=== PATIENT | female | born 1940 | race Caucasian/White ===

== ENCOUNTER 2020-06-02 08:47 | Inpatient (IN) | payer MEDICARE, SELFPAY ==
[2020-06-02] VITALS (13 sets, daily range): BP systolic 127–165; BP diastolic 64–75; PULSE 65–79; RESP 16–20; TEMP 36.4–36.9; O2SAT 94–99; BMI 25.3
--- NOTE | ~2020-06-02 | CT_ITS ---
EXAMINATION: CT lumbar spine wo con DATE: 06/02/2020 10:35 INDICATION: Low back pain TECHNIQUE: Computed tomography (CT) of the lumbar spine was performed without intravenous contrast. T he dose-length product was 621.60 mGy-cm. Automated exposure control and iterative reconstruction graciela hnique were employed. COMPARISON: No prior studies for comparison. FINDINGS: There are surgical changes consistent with posterior and anterior cervical fusion at L4-5. There is a prosthetic disc device at this level. There is disc narrowing at the remainder of the lumb ar spine levels with endplate hypertrophy/sclerosis. Lung bases unremarkable. There are bilateral sac ral insufficiency fractures. There is a transverse process fracture at L5 on the left. There is scoli osis. IMPRESSION: 1. Bilateral sacral insufficiency fractures. 2: Left L5 transverse process fracture. 3: Severe lumbar spondylosis with fusion at L4-5. Reviewed, dictated and finalized at location A. BUILDER
[2020-06-02] MEDS: HYDROmorphone HCL INJ (*CRX) 1 MG/ML SYR IV PUSH ×3 (09:36→13:03)
[2020-06-02] MEDS: ORPHENADRINE CITRATE 100 MG TABLET.ER PO (09:37)
[2020-06-02] MEDS: KETOROLAC 15 MG/ML VIAL (*BKC) IV PUSH (09:37)
--- NOTE | 2020-06-02 11:57 | ED.GENADULT ---
HPI - General Adult General Chief complaint: Back Pain/Injury Stated complaint: BACK PAIN Time Seen by Provider: 06/02/20 09:10 History of Present Illness HPI narrative: Patient is 79-year-old female presents to the emergency department with chief complaint of back pain. Patient reports that she has had chronic back pain that is been managed by her primary care physician and has been taking fentanyl patches and also oxycodone. The patient states that today she was laying in bed and had so much pain that she was unable to get out of bed. Patient states that she has had no falls no trauma denies bowel or bladder dysfunction denies foot drop denies paresthesias in her lower extremities. Related Data Home Medications Medication Instructions Recorded Confirmed fentanyl 75 mcg TRANSDERMAL Q3-4D 06/02/20 06/02/20 metoprolol tartrate 25 mg PO HS 06/02/20 06/02/20 oxycodone-acetaminophen 7.5 tablet PO Q6H 06/02/20 06/02/20 Allergies Allergy/AdvReac Type Severity Reaction Status Date / Time Sulfa (Sulfonamide Allergy Intermediate HIVES Verified 06/02/20 08:49 Antibiotics) Review of Systems Review of Systems: Narrative: A 10 system review of systems was completed on the patient and is negative except for what is stated in the HPI. Nursing and ancillary documentation was reviewed. REPLACED BY [facility] Past Medical History Medical History (Updated 06/02/20 @ 17:58 by Betty Prado PA-C) Chronic back pain Chronically on opiate therapy History of peptic ulcer Hypertension Kidney stones Nicotine dependence Osteoporosis Spinal stenosis Surgical History Surgical History (Updated 06/02/20 @ 17:57 by Betty Prado PA-C) History of appendectomy History of bilateral cataract extraction History of cholecystectomy History of exploratory laparotomy Reportedly for ectopic . History of lumbar surgery X2 History of stress incontinence procedure using tension free vaginal tape Family History Family History Grandparent Back pain Social History Social History (Updated 06/02/20 @ 17:58 by Betty Prado PA-C) Social History: Surrogate decision maker: Zachery Alford, spouse. Code status: Full code. Smoking packs per day: 0.5 Smoking cigarettes per day: 10.0 Years smoked: 25 Smoking pack-years: 12.50 Smoking status: Current every day smoker Tobacco type: cigarettes Alcohol intake: never Substance use: never Additional living arrangements comments: Lives in [place] with her . Gender identity (if verbalized by the patient): Female Sexual Orientation (if Verbalized by the Patient): Straight or Heterosexual Spiritual care concerns: No Comments Past medical history significant for chronic back pain Social history patient denies a smoking or illicit drug use Exam Narrative: Exam Narrative: GENERAL: Well-appearing, well-nourished, and in no acute distress. HEAD: Normocephalic, atraumatic. EYES: PERRLA and EOMI. ENT: Nares clear, no rhinorrhea or epistaxis. Mucous membranes moist. NECK: Supple. CHEST: Clear to auscultation. No respiratory distress. HEART: Regular rate and rhythm. No murmur heard. Normal peripheral pulses. ABDOMEN: Soft, nontender, nondistended, normal active bowel sounds. EXTREMITIES: Normal range of motion. No edema. SKIN: Warm, dry, no rash. NEURO: No focal deficits. Alert and oriented x3. PSYCH: Normal mood and affect. Course Course Emergency Course: CT scan of the lumbar spine showed evidence of a transverse process fracture and also sacral insufficiency fractures. Attempts were made to control the patient's pain in the emergency department the patient received additional pain medications but continues to have severe pain since the patient has continued to have pain the case was discussed with the hospitalist and the patient will be admitted to the hospitalist service Vital Sig
--- NOTE | 2020-06-02 12:41 | PC.NURSE ---
UPON TRYING TO SIT PT UP SHE STARTED CRYING. STATES SHE CAN NOT TOLERATE THE PAIN. DR BULL NOTIFIED. VRBO FOR DILAUDID 1 MG IVP. PT NOTIFIED OF PLAN OF CARE. NO FURTHER QUESTIONS
[2020-06-02 13:47] LABS: Basophils Percent Auto 0.3 % (0.2-1.2); Eosinophils Absolute Auto 0.1 K/mm3 (0-0.3); Eosinophils Percent Auto 0.6 % (0-4.4); Hematocrit 37.6 % (37.0-47.0); Hemoglobin 12.4 g/dL (12.0-15.0); Immature Granulocyte Absolute 0.07 K/mm3 (0.00-0.031); Immature Granulocyte Percent A 0.7 % (0-0.5); Lymphocytes Percent Auto 35.6 % (18.3-44.2); Mean Corpuscular Hemoglobin 29.8 pg (26-34); Mean Corpuscular Volume 90.4 fl (80-100); Mean Platelet Volume 9.5 fl (7.4-10.4); Monocytes Absolute Auto 0.9 K/mm3 (0.1-0.6); Neutrophils Absolute Auto 5.6 K/mm3 (1.3-6.7); Neutrophils Percent Auto 53.8 % (45.5-73.1); Platelet Count Result 249 k/mm3 (150-375); Red Blood Count 4.16 M/mm3 (4.2-5.4); Red Cell Distribution Width 12.8 % (11.5-14.5); White Blood Count 10.4 K/mm3 (4.5-10.0)
[2020-06-02 14:03] LABS: Add Urine Microscopic? YES; Appearance Urine Clear (Clear); Bilirubin Urine Negative (Negative); Blood Urine 1+ (Negative); Color Urine Yellow (Yellow); Glucose Urine UA Negative (Negative); Ketones Urine Negative (Negative); Leukocyte Esterase Ur Negative LEU/UL (Negative); Mucus Urine Rare /lpf; Nitrate Urine Negative (Negative); Protein Urine Negative (Negative); RBC Urine 0-2 /hpf (0-2); Specific Grav Ur 1.012 (1.001-1.035); Squamous Epithelial Cell Urine Rare /hpf (Few); WBC Urine 0-3 /hpf
[2020-06-02 14:03] LABS: Alanine Aminotransferase 14 U/L (4-35); Albumin Level 3.5 g/dL (3.5-5.1); Alkaline Phosphatase 105 U/L (38-126); Anion Gap 3 mmol/L (8-16); Aspartate Amino Transferase 24 U/L (14-36); Bilirubin,Total 0.8 mg/dL (0.2-1.3); Blood Urea Nitrogen 16 mg/dL (7-17); Calcium 8.8 mg/dL (8.4-10.2); Carbon Dioxide 35 mmol/L (22-30); Chloride 99 mmol/L (98-107); Estimated CRCL calculation 59 ml/min; Estimated Glomerular Filt Rate > 60; Glucose 93 mg/dL (65-105); Potassium 3.7 mmol/L (3.4-5.0); Sodium 137 mmol/L (137-145)
--- NOTE | 2020-06-02 15:54 | PC.NURSE ---
This patient, Theresa Alford, was admitted to 3 Med Surg Room 320-01. Patient/family oriented to hospital policies and general routines including ID bracelet, bed and alarms, visiting hours, pain management, procedures, bathroom and other care routines, personal items, smoking policy, room service/diet, and visiting hours. Information on how to activate the Rapid Response Team has been discussed. Patient/Family are encouraged to report perceived risks to care and to ask questions if they do not understand what they are told or what they should do.
--- NOTE | 2020-06-02 18:00 | PM.IMHP ---
H&P: HPI History of Present Illness Date/Time: 06/02/20 18:00 Chief Complaint: Acute on chronic back pain. Narrative: This is a 79-year-old female smoker with chronic back on long-term opiate therapy who presented to the emergency department earlier today via EMS from home with complaints of acute on chronic back pain. She has had increasing pain from her baseline for about the last 6 weeks, much worse in the last 1 week. This morning she was not able to get up from bed due to significant pain, which she describes as a ?hot poker? in the low lumbar region, radiating somewhat down the right leg. She denies recent injuries and has not started any new exercise programs. No saddle anesthesia, focal weakness, lower extremity paresthesias, bowel, or bladder incontinence. She has not had fever, chills, or sweats. No issues with constipation. Review of Systems Review of Systems: Narrative: Twelve systems were reviewed with pertinent positives and negatives as per HPI. Except as documented, all other systems were reviewed and are negative. [facility] Past Medical History Medical History (Updated 06/02/20 @ 17:58 by Betty Prado PA-C) Chronic back pain Chronically on opiate therapy History of peptic ulcer Hypertension Kidney stones Nicotine dependence Osteoporosis Spinal stenosis Surgical History Surgical History (Updated 06/02/20 @ 17:57 by Betty Prado PA-C) History of appendectomy History of bilateral cataract extraction History of cholecystectomy History of exploratory laparotomy Reportedly for ectopic . History of lumbar surgery X2 History of stress incontinence procedure using tension free vaginal tape Family History Family History Grandparent Back pain Social History Social History (Updated 06/02/20 @ 17:58 by Betty Prado PA-C) Social History: Surrogate decision maker: Zachery Alford, spouse. Code status: Full code. Smoking packs per day: 0.5 Smoking cigarettes per day: 10.0 Years smoked: 25 Smoking pack-years: 12.50 Smoking status: Current every day smoker Tobacco type: cigarettes Alcohol intake: never Substance use: never Additional living arrangements comments: Lives in [place] with her . Gender identity (if verbalized by the patient): Female Sexual Orientation (if Verbalized by the Patient): Straight or Heterosexual Spiritual care concerns: No Meds Home Medications and Allergies Home Medications Medication Instructions Recorded Confirmed Type fentanyl 75 mcg TRANSDERMAL Q3-4D 06/02/20 06/02/20 History metoprolol tartrate 25 mg PO HS 06/02/20 06/02/20 History oxycodone-acetaminophen 7.5 tablet PO Q6H 06/02/20 06/02/20 History Allergies Allergy/AdvReac Type Severity Reaction Status Date / Time Sulfa (Sulfonamide Allergy Intermediate HIVES Verified 06/02/20 08:49 Antibiotics) Vital Signs Vital Signs - 24 hr 06/02/20 08:45 06/02/20 09:42 06/02/20 11:19 Temperature 97.8 F Pulse Rate 79 69 68 Respiratory Rate 20 20 20 Blood Pressure 162/69 H 165/69 H 127/68 Pulse Oximetry 99 98 97 06/02/20 13:06 06/02/20 14:32 06/02/20 15:19 Temperature Pulse Rate 70 65 66 Respiratory Rate 20 20 20 Blood Pressure 154/64 H 138/69 138/69 Pulse Oximetry 97 99 99 06/02/20 16:11 Temperature 98.4 F Pulse Rate 70 Respiratory Rate 18 Blood Pressure 153/75 H Pulse Oximetry 99 Exam Narrative: Exam Narrative: General: Well-developed elderly female lying on her left side in bed in no acute distress. Weight: 69.8 kg. BMI: 25.6. HEENT: PERRL, EOMI. Sclerae anicteric. Oral mucosa moist. Oropharynx clear. Neck: Supple. Respiratory: Lungs are clear to auscultation bilaterally. Cardiovascular: Regular rate and rhythm with S1-S2. Soft murmur at upper sternal border. Gastrointestinal: Abdomen is soft, nontender, and nondistended with positive bowel s
[2020-06-02] MEDS: HYDROmorphone HCL INJ (*CRX) 1 MG/ML SYR 0.5 MG IV PUSH ×2 (18:06→23:00)
[2020-06-02] MEDS: METOPROLOL TARTRATE 25 MG TABLET PO (20:14)
[2020-06-03] VITALS (7 sets, daily range): BP systolic 116–128; BP diastolic 49–69; PULSE 61–85; RESP 16–20; TEMP 36.7–36.8; O2SAT 94–97; BMI 10.0
[2020-06-03] MEDS: HYDROmorphone HCL INJ (*CRX) 1 MG/ML SYR 0.5 MG IV PUSH ×4 (03:03→21:49)
--- NOTE | 2020-06-03 09:55 | PC.NURSE ---
All charting and medications done from 480-750 on this patient was done by Anabella Rodriguez RN but documented under the name of Clay Dalton RN by mistake.
--- NOTE | 2020-06-03 13:36 | PM.IMPN ---
Progress Note: A&P Assessment and Plan (1) Bilateral sacral insufficiency fracture: Qualifiers: Encounter type: initial encounter Qualified Code(s): M84.48XA - Pathological fracture, other site, initial encounter for fracture Code(s): M84.48XA - Pathological fracture, other site, initial encounter for fracture Status: Acute Assessment and Plan: Likely the reason why the patient is having so much pain -no recent fall, trauma or recent situation where she can remember causing this fracture -she takes 75 mcg of fentanyl and 7.5 mg of oxycodone routinely at home -will try this regimen and see if she can tolerate it. We will also add a lot of for breakthrough pain -if she continues to have severe pain with this, may need to increase the fentanyl patch -she has not had a bone scan in quite some time and plans to follow-up with her primary care physician to get this once she is healed -she is asking about a brace and or exercises. She is considering SNF but does not want to do that if she can avoid it -although we do not have ortho spine here, I am going to see if the orthopedist will see her to provide any extra recommendations to help her out. (2) Lumbar transverse process fracture: Qualifiers: Encounter type: initial encounter Fracture type: closed Qualified Code(s): S32.009A - Unspecified fracture of unspecified lumbar vertebra, initial encounter for closed fracture Code(s): S32.009A - Unspecified fracture of unspecified lumbar vertebra, initial encounter for closed fracture Status: Acute Assessment and Plan: As above -continue PT, OT and pain management (3) Acute exacerbation of chronic low back pain: Code(s): M54.5 - Low back pain; G89.29 - Other chronic pain Status: Acute Assessment and Plan: Due to above -adjust pain medications as stated above -may need SNF -continue with PT and OT (4) Chronically on opiate therapy: Code(s): Z79.891 - long-term (current) use of opiate analgesic Status: Acute Assessment and Plan: Patient states she is on 75 mcg of fentanyl and 7.5 mg of oxycodone pretty routinely at home. She will likely need these medications increased during this time. She had a bowel movement this morning and does not have any constipation at this time. See above. (5) Hypertension: Code(s): I10 - Essential (primary) hypertension Status: Acute Assessment and Plan: Last blood pressure 116/54 -elevated earlier in the stay likely due to pain -will monitor (6) Nicotine dependence: Code(s): F17.200 - Nicotine dependence, unspecified, uncomplicated Status: Acute Time Spent With Patient Time with patient: 25 - 35 minutes Subjective Date/time seen: 06/03/20 13:36 Interval history: Pt is a 79-year-old female here for back pain with fractures. Patient was seen today and states she is still has 10/10 back pain when lying down. She tried to work with physical therapy but could not. She was able to sit up. She has no numbness tingling or incontinence. She states that she takes 75 mcg of fentanyl at home and 7.5 mg of Oxy very routinely and she gets this from her doctor, Dr. Ball. She is trying the heating pad now to see if that helps. She had a bowel movement this morning without issue. She is eating and drinking okay. She denies chest pain, shortness of breath, fevers, chills, nausea, vomiting, abdominal pain or leg swelling. Review of Systems Review of Systems: All systems reviewed & are unremarkable except as noted in HPI and below Exam Narrative: Exam Narrative: General: Well developed well nourished patient in NAD HEENT: normocephalic Neck: supple Neuro: Alert and oriented x4. Strength 5/5 in the lower extremities with sensation intact. CV:RRR Resp:CTA Abd: Soft, non distended. No pain to palpation. Positive bowel sounds Extremities: No swelling, oneyda
[2020-06-03] MEDS: oxyCODONE HCL (*CRX) 2.5 MG TAB IR 7.5 MG PO (18:10)
[2020-06-03] MEDS: ACETAMINOPHEN 500 MG TABLET 1000 MG PO (18:11)
[2020-06-03] MEDS: METOPROLOL TARTRATE 25 MG TABLET PO (21:06)
[2020-06-04] MEDS: HYDROmorphone HCL INJ (*CRX) 1 MG/ML SYR 0.5 MG IV PUSH (03:40)
[2020-06-04 06:00] VITALS: BP 138/61; PULSE 71; RESP 20; TEMP 36.7; O2SAT 98
[2020-06-04] MEDS: oxyCODONE HCL (*CRX) 2.5 MG TAB IR 7.5 MG PO ×5 (06:21→23:04)
[2020-06-04] MEDS: fentaNYL (*CRX) 75 MCG PATCH TRANSDERM (09:31)
--- NOTE | 2020-06-04 10:31 | PM.IMPN ---
Progress Note: A&P Assessment and Plan (1) Bilateral sacral insufficiency fracture: Qualifiers: Encounter type: initial encounter Qualified Code(s): M84.48XA - Pathological fracture, other site, initial encounter for fracture Code(s): M84.48XA - Pathological fracture, other site, initial encounter for fracture Status: Acute Assessment and Plan: Likely the reason why the patient is having so much pain -no recent fall, trauma or recent situation where she can remember causing this fracture -she takes 75 mcg of fentanyl and 7.5 mg of oxycodone routinely at home -continue with home regimen and add Dilaudid (at increased dose) p.r.n.. Will provide Narcan as well -she has not had a bone scan in quite some time and plans to follow-up with her primary care physician to get this once she is healed -she is asking about a brace and or exercises. -although we do not have ortho spine here, I am going to see if the orthopedist will see her to provide any extra recommendations to help her out. -spoke with care coordination who is going to send insurance authorization for SNF today. Once the patient's pain is more controlled and she does not require IV narcotics, she can be discharged (2) Lumbar transverse process fracture: Qualifiers: Encounter type: initial encounter Fracture type: closed Qualified Code(s): S32.009A - Unspecified fracture of unspecified lumbar vertebra, initial encounter for closed fracture Code(s): S32.009A - Unspecified fracture of unspecified lumbar vertebra, initial encounter for closed fracture Status: Acute Assessment and Plan: As above -continue PT, OT and pain management (3) Acute exacerbation of chronic low back pain: Code(s): M54.5 - Low back pain; G89.29 - Other chronic pain Status: Acute Assessment and Plan: Due to above -adjust pain medications as stated above -will need SNF -continue with PT and OT (4) Chronically on opiate therapy: Code(s): Z79.891 - assisted (current) use of opiate analgesic Status: Acute Assessment and Plan: Patient states she is on 75 mcg of fentanyl and 7.5 mg of oxycodone pretty routinely at home. She had a bowel movement this morning and does not have any constipation at this time. See above. (5) Hypertension: Code(s): I10 - Essential (primary) hypertension Status: Acute Assessment and Plan: Last blood pressure 138/61 -elevated earlier in the stay likely due to pain -will monitor (6) Nicotine dependence: Code(s): F17.200 - Nicotine dependence, unspecified, uncomplicated Status: Acute Subjective Date/time seen: 06/04/20 10:31 Interval history: Pt is a 79-year-old female here for back pain with fractures. Patient was seen today and states she is still has 10/10 back pain when lying down. She cannot even sit up on the side of the bed without extreme pain. She is very tearful at bedside. She states the oxycodone helps more than the Dilaudid and she is unsure if she can do physical therapy but she will try again today. Patient is not excited about going to a rehab but understands she needs the help. She denies chest pain, shortness of breath, fevers, chills, abdominal pain, weakness in her lower extremities, bowel or bladder incontinence. She has been urinating and having bowel movements in her depends but says this is voluntary because she does not want anyone else to have to clean it up and cannot stand up Exam Narrative: Exam Narrative: General: Well developed well nourished patient in NAD HEENT: normocephalic Neck: supple Neuro: Alert and oriented x4. Strength 5/5 in the lower extremities with sensation intact. CV:RRR Resp:CTA Abd: Soft, non distended. No pain to palpation. Positive bowel sounds Extremities: No swelling, erythema, or pain to palpation. She is able to move her lower extremities freely Objective Data
--- NOTE | 2020-06-04 11:48 | PM.CNOR ---
Assessment and Plan Assessment and plan (1) Bilateral sacral insufficiency fracture: Qualifiers: Encounter type: initial encounter Qualified Code(s): M84.48XA - Pathological fracture, other site, initial encounter for fracture Code(s): M84.48XA - Pathological fracture, other site, initial encounter for fracture Status: Acute Assessment and Plan: 79-year-old female with bilateral sacral ala stress fractures. I discussed the condition with her. CT scan shows a transverse process fracture of the lower lumbar region which I think is probably secondary to her prior lumbar procedures and is not acute. At the very least, she will need to use a walker for 6-8 more weeks and trying the limited ambulation. Moving forward, I do think that she would be well suited using at least a cane as a gait aid if not a walker product management intern because of the severity of her back issues. Therapy is going to be seeing her to get mobilized. I will need to see her in one month for pelvis x-ray. Thank you for the consultation. I will follow while she is in the hospital. History of Present Illness HPI Consult date: 06/04/20 Consult reason: fracture (Sacral ala insufficiency fractures) Chief complaint: Intractable Back Pain Narrative: 71-year-old female who came to the hospital with intractable low back pain. It is actually in her tailbone. This began about six rate weeks ago. She said she is quite active walking around but does not use a cane. She does not have any recent injury. It does have a history of low back surgery x2. She is chronically on oxycodone and fentanyl for her pain. This was no longer helping hurt over the course of the past two weeks she had marked increase in her symptoms and deterioration of her function. Review of Systems Constitutional: Constitutional: Reports no additional constitutional complaints, Denies excessive sweating and Denies fatigue Musculoskeletal: Musculoskeletal: Reports as per HPI Neurologic: Reports as per HPI PMFSH Past Medical History Medical History (Updated 06/04/20 @ 11:57 by Adam Alvarez MD) Chronic back pain Chronically on opiate therapy History of peptic ulcer Hypertension Kidney stones Lumbar transverse process fracture Nicotine dependence Osteoporosis Spinal stenosis Surgical History Surgical History History of appendectomy History of bilateral cataract extraction History of cholecystectomy History of exploratory laparotomy Reportedly for ectopic . History of lumbar surgery X2 History of stress incontinence procedure using tension free vaginal tape Family History Family History Grandparent Back pain Social History Social History Social History: Surrogate decision maker: Zachery Alford, spouse. Code status: Full code. Smoking packs per day: 0.5 Smoking cigarettes per day: 10.0 Years smoked: 25 Smoking pack-years: 12.50 Smoking status: Current every day smoker Tobacco type: cigarettes Alcohol intake: never Substance use: never Additional living arrangements comments: Lives in [place] with her . Gender identity (if verbalized by the patient): Female Sexual Orientation (if Verbalized by the Patient): Straight or Heterosexual Spiritual care concerns: No Meds Home Medications and Allergies Home Medications Medication Instructions Recorded Confirmed Type fentanyl 75 mcg TRANSDERMAL Q3-4D 06/02/20 06/02/20 History metoprolol tartrate 25 mg PO HS 06/02/20 06/02/20 History oxycodone-acetaminophen 7.5 tablet PO Q6H 06/02/20 06/02/20 History Allergies Allergy/AdvReac Type Severity Reaction Status Date / Time Sulfa (Sulfonamide Allergy Intermediate HIVES Verified 06/02/20 08:49 Antibiotics) Vital Signs Vital Signs - 24 hr 06/03
[2020-06-04 14:00] VITALS: BP 113/60; PULSE 84; RESP 18; TEMP 36.5; O2SAT 97
[2020-06-04 19:06] LABS: SARS-CoV-2 RNA PCR Negative
[2020-06-04 20:00] VITALS: PULSE 78; RESP 16; O2SAT 95
[2020-06-04 20:37] VITALS: PULSE 92
[2020-06-04] MEDS: METOPROLOL TARTRATE 25 MG TABLET PO (20:37)
[2020-06-04] MEDS: HYDROmorphone HCL INJ (*CRX) 1 MG/ML SYR IV PUSH (20:38)
[2020-06-04 21:58] VITALS: BP 114/67; PULSE 78; RESP 16; TEMP 36.6; O2SAT 97
[2020-06-04] MEDS: LORazepam (*CRX) 0.5 MG TABLET PO (23:11)
[2020-06-05] VITALS (8 sets, daily range): BP systolic 117–137; BP diastolic 65–82; PULSE 69–80; RESP 18–20; TEMP 36.4–37.1; O2SAT 94–99
[2020-06-05] MEDS: oxyCODONE HCL (*CRX) 2.5 MG TAB IR 7.5 MG PO (04:23)
[2020-06-05] MEDS: ACETAMINOPHEN 500 MG TABLET 1000 MG PO (05:21)
[2020-06-05 06:36] LABS: Hematocrit 39.2 % (37.0-47.0); Hemoglobin 13.2 g/dL (12.0-15.0); Mean Corpuscular HGB Conc 33.7 g/dl (32-36); Mean Corpuscular Hemoglobin 31.2 pg (26-34); Mean Corpuscular Volume 92.7 fl (80-100); Mean Platelet Volume 9.5 fl (7.4-10.4); Platelet Count Result 255 k/mm3 (150-375); Red Blood Count 4.23 M/mm3 (4.2-5.4); White Blood Count 8.4 K/mm3 (4.5-10.0)
[2020-06-05 06:59] LABS: Anion Gap 1 mmol/L (8-16); Blood Urea Nitrogen 15 mg/dL (7-17); Calcium 8.8 mg/dL (8.4-10.2); Carbon Dioxide 32 mmol/L (22-30); Chloride 100 mmol/L (98-107); Estimated CRCL calculation 51 ml/min; Estimated Glomerular Filt Rate > 60; Glucose 122 mg/dL (65-105); Potassium 4.5 mmol/L (3.4-5.0); Sodium 133 mmol/L (137-145)
[2020-06-05] MEDS: LIDOCAINE 5% PATCH 1 PATCH TRANSDERM (08:35)
[2020-06-05] MEDS: oxyCODONE HCL (*CRX) 2.5 MG TAB IR PO ×4 (08:57→20:46)
[2020-06-05] MEDS: oxyCODONE HCL (*CRX) 5 MG TAB IR PO ×4 (08:58→20:47)
--- NOTE | 2020-06-05 14:23 | PM.IMPN ---
Progress Note: A&P Assessment and Plan (1) Bilateral sacral insufficiency fracture: Qualifiers: Encounter type: initial encounter Qualified Code(s): M84.48XA - Pathological fracture, other site, initial encounter for fracture Code(s): M84.48XA - Pathological fracture, other site, initial encounter for fracture Status: Acute Assessment and Plan: RICHAR sacral ala stress fractures. Suspect this is source of pain. Denies recent fall or trauma. She takes 75 mcg of fentanyl and 7.5 mg of oxycodone routinely at home Continue with home regimen and add Dilaudid (at increased dose) p.r.n.. Will provide Narcan as well. Patient notes ibuprofen helps at home. Add scheduled ibuprofen plus protonix for GI ppx. She has not had a bone scan in quite some time and plans to follow-up with her primary care physician to arrange this once she is healed. Appreciate Dr Alvarez's input. Once the patient's pain is more controlled and she does not require IV narcotics, she can be discharged. She declines SNF and home health has been arranged. (2) Lumbar transverse process fracture: Qualifiers: Encounter type: initial encounter Fracture type: closed Qualified Code(s): S32.009A - Unspecified fracture of unspecified lumbar vertebra, initial encounter for closed fracture Code(s): S32.009A - Unspecified fracture of unspecified lumbar vertebra, initial encounter for closed fracture Status: Inactive Assessment and Plan: Continue PT, OT and pain management. (3) Chronically on opiate therapy: Code(s): Z79.891 - FDC (current) use of opiate analgesic Status: Chronic Assessment and Plan: Patient states she is on 75 mcg of fentanyl and 7.5 mg of oxycodone pretty routinely at home. See above. (4) Hypertension: Qualifiers: Hypertension type: essential hypertension Qualified Code(s): I10 - Essential (primary) hypertension Code(s): I10 - Essential (primary) hypertension Status: Chronic Assessment and Plan: Stable maintained on her home metoprolol. Monitor BP and adjust treatment as needed. (5) Nicotine dependence: Qualifiers: Nicotine product type: unspecified Substance use status: unspecified nicotine-induced disorder Qualified Code(s): F17.209 - Nicotine dependence, unspecified, with unspecified nicotine-induced disorders Code(s): F17.200 - Nicotine dependence, unspecified, uncomplicated Status: Chronic Assessment and Plan: Smoking cessation encouraged. Subjective Date/time seen: 06/05/20 14:00 Interval history: Ms. Alford is a 79yo F admitted due to back pain with fractures. She becomes tearful describing 8/10 back pain. Can barely walk but did so with staff today. Reports feeling minimally improved from yesterday. She denies chest pain, shortness of breath, or cough. Tolerating oral intake without nausea or vomiting. No numbness, tingling, or weakness to RICHAR lower extremities. Denies bowel or bladder incontinence. Describes she is voluntarily using Depends for voiding and BMs due to immobility from back pain. Review of Systems Review of Systems: All systems reviewed & are unremarkable except as noted in HPI and below Exam Narrative: Exam Narrative: General: Well developed well nourished patient in NAD HEENT: normocephalic Neck: supple Neuro: Alert and oriented x4. Strength 5/5 in the lower extremities with sensation intact. CV:RRR Resp:CTA Abd: Soft, non distended. No pain to palpation. Positive bowel sounds Extremities: No swelling, erythema, or pain to palpation. She is able to move her lower extremities freely Objective Data Vital Signs Vital Signs: Last Vital Signs Temp 98.8 F
[2020-06-05] MEDS: IBUPROFEN 400 MG TABLET 800 MG PO ×2 (15:14→21:28)
[2020-06-05] MEDS: PANTOPRAZOLE 40 MG TABLET PO (17:11)
[2020-06-05] MEDS: METOPROLOL TARTRATE 25 MG TABLET PO (20:45)
[2020-06-05] MEDS: LORazepam (*CRX) 0.5 MG TABLET PO (20:45)
[2020-06-06] MEDS: oxyCODONE HCL (*CRX) 2.5 MG TAB IR PO ×4 (00:44→14:40)
[2020-06-06] MEDS: oxyCODONE HCL (*CRX) 5 MG TAB IR PO ×4 (00:45→14:39)
[2020-06-06 01:16] LABS: Add Urine Microscopic? YES; Appearance Urine Clear (Clear); Bacteria Urine Trace /hpf; Bilirubin Urine Negative (Negative); Blood Urine 2+ (Negative); Color Urine Yellow (Yellow); Glucose Urine UA Negative (Negative); Ketones Urine Negative (Negative); Leukocyte Esterase Ur 2+ LEU/UL (Negative); Mucus Urine Rare /lpf; Nitrate Urine Negative (Negative); Protein Urine Negative (Negative); Specific Grav Ur 1.018 (1.001-1.035); Squamous Epithelial Cell Urine Moderate /hpf (Few); Urobilinogen Urine Negative mg/dL (<2.0)
--- NOTE | 2020-06-06 01:30 | PC.NURSE ---
Called to room for muscle spasms and involuntary leg twitching. Ambulated in room with assist of 1 and walker. Gait steady.
[2020-06-06] MEDS: LORazepam (*CRX) 0.5 MG TABLET PO (02:32)
[2020-06-06] MEDS: HYDROmorphone HCL INJ (*CRX) 1 MG/ML SYR IV PUSH (02:35)
[2020-06-06 03:38] LABS: Anion Gap 9 mmol/L (8-16); Blood Urea Nitrogen 19 mg/dL (7-17); Calcium 8.9 mg/dL (8.4-10.2); Carbon Dioxide 25 mmol/L (22-30); Chloride 102 mmol/L (98-107); Estimated CRCL calculation 51 ml/min; Estimated Glomerular Filt Rate > 60; Glucose 136 mg/dL (65-105); Magnesium 1.8 mg/dL (1.6-2.3); Sodium 136 mmol/L (137-145)
[2020-06-06 03:45] LABS: Creatine Kinase 69 U/L (30-135)
[2020-06-06] MEDS: diazePAM INJ (*CRX) 10 MG/2 ML SYRINGE 5 MG IV PUSH (04:43)
[2020-06-06] MEDS: NICOTINE (*PBKC) 21 MG PATCH 1 PATCH TRANSDERM (05:09)
[2020-06-06] MEDS: IBUPROFEN 400 MG TABLET 800 MG PO ×2 (05:13→14:33)
[2020-06-06 05:57] VITALS: BP 161/67; PULSE 107; RESP 22; TEMP 35.9; O2SAT 97
[2020-06-06 08:00] VITALS: PULSE 107; RESP 22; O2SAT 97
--- NOTE | 2020-06-06 08:48 | PCOTNOTE ---
Per RN, patient had bad night and given Ativan, among others to assist with rest. Attempted to see patient this am, however patient refused stating, I didn't sleep well last night, maybe 30 minutes.
[2020-06-06] MEDS: LIDOCAINE 5% PATCH 1 PATCH TRANSDERM (09:30)
[2020-06-06] MEDS: PANTOPRAZOLE 40 MG TABLET PO (09:31)
--- NOTE | 2020-06-06 11:59 | PM.DS ---
DS: Admitting Diagnosis Admitting Diagnosis Admitting Diagnosis: Acute on chronic back pain DS: Discharge Diagnosis Discharge Diagnosis (1) Bilateral sacral insufficiency fracture: Qualifiers: Encounter type: initial encounter Qualified Code(s): M84.48XA - Pathological fracture, other site, initial encounter for fracture Code(s): M84.48XA - Pathological fracture, other site, initial encounter for fracture Status: Acute Assessment and Plan: Date of Admission 06/02/20 Date of Discharge 06/06/20 Ms. Alford is a 79yo F with history of chronic back pain with long-term opioid use, hypertension, and tobacco use who presented to the ED for evaluation of acute on chronic back pain. She denied any recent fall or trauma but noted worsening back pain over the last several days and could barely walk at home. She is known to use fentanyl patch and 7.5mg oxycodone daily for chronic back pain. Imaging here demonstrated bilateral sacral ala insufficiency fractures and left L5 transverse process fracture. She denied leg weakness, numbness or tingling. She denied bowel or bladder dysfunction however she was wearing depends as she was voluntarily voiding/BMs in them due to immobility. Our facility does not have ortho/spine service but orthopedic surgery was consulted for recommendations. She was maintained on her home pain regimen with IV dilaudid added for breakthrough pain. She also described ibuprofen helped at home so this was added along with protonix for GI prophylaxis. She made slow progress with therapy. She declined placement at longterm or rehab. She is able to ambulate prior to discharge but she is still in pain. She is encouraged to follow up with PCP for outpatient bone scan, Dr Alvarez in 1 mo for repeat XR. She is also interested in re-establishing care with pain management to help her wean down her narcotic regimen. She is hemodynamically stable for discharge on 06/06/20. (2) Lumbar transverse process fracture: Qualifiers: Encounter type: initial encounter Fracture type: closed Qualified Code(s): S32.009A - Unspecified fracture of unspecified lumbar vertebra, initial encounter for closed fracture Code(s): S32.009A - Unspecified fracture of unspecified lumbar vertebra, initial encounter for closed fracture Status: Inactive Assessment and Plan: Continue PT, OT and pain management. (3) Chronically on opiate therapy: Code(s): Z79.891 - terminal manager (current) use of opiate analgesic Status: Chronic Assessment and Plan: Patient states she is on 75 mcg of fentanyl and 7.5 mg of oxycodone pretty routinely at home. See above. (4) Hypertension: Qualifiers: Hypertension type: essential hypertension Qualified Code(s): I10 - Essential (primary) hypertension Code(s): I10 - Essential (primary) hypertension Status: Chronic Assessment and Plan: Stable maintained on her home metoprolol. (5) Nicotine dependence: Qualifiers: Nicotine product type: unspecified Substance use status: unspecified nicotine-induced disorder Qualified Code(s): F17.209 - Nicotine dependence, unspecified, with unspecified nicotine-induced disorders Code(s): F17.200 - Nicotine dependence, unspecified, uncomplicated Status: Chronic Assessment and Plan: Smoking cessation encouraged. DS: Summary Hospital Course Hospital Course: See above. Time Spent with Patient Time attestation: Total time spent providing and/or coordinating discharge services: 40 minutes Exam Narrative: Exam Narrative: General: Well developed well nourished patient in NAD HEENT: normocephalic Neck: supple Neuro: Alert and oriented x4. Strength 5/5 in the low
[2020-06-06 14:00] VITALS: BP 150/61; PULSE 88; RESP 20; TEMP 37.1; O2SAT 98
== END 2020-06-06 17:00 | disposition home health service (06) | DRG 543 ==
LOC: ANHED 13:13 → ANH3MEDSUR 15:15
PROVIDERS: Internal Medicine; Physician Assistant; Admitting Provider Internal Medicine; Emergency Provider Emergency Medicine; PCP Family Medicine; Visit Provider Physician Assistant
DX: M84.38XA Stress fracture, other site, initial encounter for fracture (principal); S32.009A Unspecified fracture of unspecified lumbar vertebra, initial encounter for closed fracture; X58.XXXA Exposure to other specified factors, initial encounter; Z98.1 Arthrodesis status; I10 Essential (primary) hypertension; Z20.822 Contact with and (suspected) exposure to COVID-19; F17.200 Nicotine dependence, unspecified, uncomplicated; M81.0 Age-related osteoporosis without current pathological fracture; M48.00 Spinal stenosis, site unspecified; G89.29 Other chronic pain; M54.5 Low back pain; Z87.11 Personal history of peptic ulcer disease; Z98.42 Cataract extraction status, left eye; Z98.41 Cataract extraction status, right eye; Z90.49 Acquired absence of other specified parts of digestive tract; Z79.891 Long term (current) use of opiate analgesic
CPT/HCPCS: 36415; 72131; 80048; 80053; 81001; 82550; 83735; 85025; 85027; 87086; 87088; 96374; 96375; 96376; 97110; 97161; 97165; 97530; 97535; 99285; A9270; C9803; G0378; J1170; J1885; J3360; U0003

== ENCOUNTER 2020-07-26 13:09 | Outpatient (CLI) | payer MEDICARE, SELFPAY | END 2020-07-26 13:10 | disposition home or self-care (01) | LOC: ANHCOVIDVC 13:09 | PROVIDERS: PCP Family Medicine | DX: Z23 Encounter for immunization (principal) | CPT/HCPCS: 0001A; 91300 ==

== ENCOUNTER 2020-08-16 13:14 | Outpatient (CLI) | payer MEDICARE, SELFPAY | END 2020-08-16 13:15 | disposition home or self-care (01) | LOC: ANHCOVIDVC 13:14 | PROVIDERS: PCP Family Medicine | DX: Z23 Encounter for immunization (principal) | CPT/HCPCS: 0002A; 91300 ==